=== PATIENT | male | born 1970 | race Caucasian/White ===

== ENCOUNTER → 2020-06-18 | Outpatient (CLI) | payer BC ==
[2020-06-18 07:41] LABS: Basophils # (A) 0.1 k/uL (0-0.2); Basophils % (A) 1 %; Eosinophils # (A) 0.2 k/uL (0-0.7); Eosinophils % (A) 3 %; HCT 50.2 % (39.0-53.0); HGB 16.3 gm/dL (13.0-17.5); Lymphocytes # (A) 1.5 k/uL (1.0-4.8); Lymphocytes % (A) 24 %; MCH 30.2 pg (25.0-35.0); MCHC 32.4 g/dL (31.0-37.0); MCV 93.1 fL (80.0-100.0); Mean Platelet Volume 7.4; Monocytes # (A) 0.5 k/uL (0-1.0); Monocytes % (A) 8 %; Neutrophils # (A) 3.8 k/uL (1.3-7.7); Neutrophils % (A) 61 %; Platelet Count 224 k/uL (150-450); RBC 5.39 m/uL (4.30-5.90); RDW 12.5 % (11.5-15.5); WBC 6.2 k/uL (3.8-10.6)
[2020-06-18 07:52] LABS: Potassium 4.2 mmol/L (3.5-5.1)
== END | disposition home or self-care (01) ==
LOC: LABPAT 07:10
PROVIDERS: ATTEND Orthopaedic Surgery
DX: Z01.818 Encounter for other preprocedural examination (principal); M23.91 Unspecified internal derangement of right knee
CPT/HCPCS: 80051; 85025

== ENCOUNTER 2020-06-25 09:28 | Day surgery (SDC) | payer BC ==
[2020-06-18 16:04] VITALS: BMI 30.1
--- NOTE | 2020-06-24 12:33 | HP ---
HISTORY AND PHYSICAL DATE OF SURGERY: 06/25/2020 Dread Santa is a 50-year-old patient seen with progressive right knee pain. We discussed options for treatment. He elected to proceed with arthroscopy. Consent was obtained. PAST MEDICAL HISTORY: Noncontributory. PAST SURGICAL HISTORY: Herniorrhaphy, right shoulder arthroscopy, hand surgery. DAILY MEDICATIONS: None. ALLERGIES: None reported. SOCIAL HISTORY: He denies current tobacco use. PHYSICAL EVALUATION OF THE RIGHT KNEE: Range of motion is 0-125. There is a mild effusion present. He is tender along the medial joint line. Positive medial Shannan's. Ligaments are stable. Hip rotation without pain. Distal neurovascular exam is intact. RADIOGRAPHS OF THE RIGHT KNEE: Revealed mild osteoarthritic changes. IMPRESSION: Internal derangement, right knee with medial meniscal tear. PLAN: Right knee arthroscopy with partial meniscectomy, partial synovectomy and debridement. MMODL / IJN: [id number] /
[~2020-06-25 09:28] MED LIST: DEXAMETHASONE SOD PHOSPHATE 10 MG/ML 1 ML VIAL IV ONE; LACTATED RINGERS 1,000 ML IV SCH; MIDAZOLAM 2 MG/2 ML VIAL IV PRN; ONDANSETRON 4 MG/2 ML VIAL IVP ONE; SCOPOLAMINE 1.5MG/72HR PATCH TRANSDERM ONE
[2020-06-25] MEDS ORDERED: ONDANSETRON 4 MG/2 ML VIAL ONE (10:04)
[2020-06-25] MEDS ORDERED: fentaNYL (PF) 50 MCG/ML 2 ML AMP ONE (11:06)
[2020-06-25] MEDS ORDERED: MIDAZOLAM 2 MG/2 ML VIAL ONE (11:06)
[2020-06-25] MEDS ORDERED: LIDOCAINE 1% INJ 10MG/ML (20 ML MDV) ONE (11:06)
[2020-06-25] MEDS ORDERED: PROPOFOL 10 MG/ML 20 ML VIAL IV ONE (11:06)
[2020-06-25] MEDS ORDERED: BUPIVACAINE (PF) 0.25% 30 ML VIAL SQ ONE (11:08)
[2020-06-25] MEDS ORDERED: BUPIVACAINE (PF) 0.25% 30 ML VIAL INTRAARTIC ONE (11:39)
[2020-06-25] MEDS: HYDROmorphone 0.5 MG/0.5 ML SYRINGE IVP PRN ×4 (11:55→12:22)
--- NOTE | 2020-06-25 11:57 | P.OP ---
Date of Procedure: 06/25/20 Preoperative Diagnosis: Internal derangement right knee Postoperative Diagnosis: 1. Tear medial meniscus right knee 2. Grade 2/3 chondromalacia medial femoral condyle right knee 3. Reactive synovitis medial, lateral and suprapatellar compartments right knee Procedure(s) Performed: 1. Arthroscopic partial medial meniscectomy right knee 2. Arthroscopic chondroplasty medial femoral condyle right knee 3. Arthroscopic partial synovectomy medial, lateral and suprapatellar compartments right knee Anesthesia: GETA, local Surgeon: Moo Cartwright Estimated Blood Loss (ml): 11 Pathology: none sent Condition: stable Disposition: PACU Indications for Procedure: 50-year-old patient seen with progressive right knee pain. After having treatment options discussed, he elected to proceed with arthroscopy. Operative Findings: see description of procedure Description of Procedure: Patient was taken to the operative suite. Patient underwent a general anesthetic by the department of anesthesia. Patient was given preoperative antibiotics. The right lower extremity was placed in a well-padded arthroscopic leg harding. The right leg was prepped and draped in the normal sterile orthopedic fashion. A lateral parapatellar and suprapatellar incision was made. Trochars were inserted. Arthroscopy was initiated. Suprapatellar pouch revealed diffuse thick reactive synovitis. The patellofemoral joint appeared to articulate congruently. There was grade 1 chondromalacia with no osteochondral flap tears present. The scope was guided into the medial gutter. No loose bodies or plica were identified. The scope was then guided into the medial compartment. A medial parapatellar incision was made. Trocar inserted followed by probe. There was a complex tear involving the posterior horn medial meniscus. There were grade 2/3 chondromalacia changes of the medial femoral condyle with some osteochondral flap tears present. There was thick reactive synovitis anteriorly. I performed a partial medial meniscectomy down to stable tissue. I performed a chondroplasty of the medial femoral condyle. I performed a partial synovectomy decompressing reactive synovitis. The residual meniscus was stable. The residual osteochondral surface of the medial femoral condyle was stable. There was good decompression of the synovitis. Scope and probe were then guided into the intercondylar notch. Cruciates were identified, probed and found to be stable. The scope and probe were then guided into lateral compartment. Lateral meniscus was probed and found be stable. There were some mild grade 1 chondromalacia changes lateral compartment. There was thick reactive synovitis anteriorly. I introduced a motorized shaver and performed a partial synovectomy decompressing reactive synovitis. The shaver was removed. There was good decompression of the synovitis. The scope was in guided back into the suprapatellar compartment. I introduced a motorized shaver into the superapatellar compartment. I debrided some piecemeal fragments of meniscus I encountered. I performed a partial synovectomy decompressing the reactive synovitis. The shaver was removed. There was good decompression of synovitis. I took one more look on the entire knee, no residual debris. Instruments were now removed from the joint. The joint was infiltrated with .25% Marcaine. Steri-Strips were applied to the portal sites. Sterile dressings were applied. The patient was placed into a LUIS ANGEL hose. No tourniquet was utilized. The patient was awakened, transferred to a bed and taken to recovery stable satisfactory condition.
[2020-06-25 12:05] VITALS: RESP 18; TEMP 96.8
[2020-06-25] MEDS ORDERED: ONDANSETRON 4 MG/2 ML VIAL IVP ONE (12:06)
[2020-06-25] MEDS ORDERED: KETOROLAC 30 MG/ML 1 ML VIAL IVP STA (12:13)
[2020-06-25 13:37] VITALS: BP 131/74; PULSE 65
== END 2020-06-25 13:55 | disposition home or self-care (01) ==
LOC: OR 09:28
PROVIDERS: ATTEND Orthopaedic Surgery
DX: S83.241A Other tear of medial meniscus, current injury, right knee, initial encounter (principal); X58.XXXA Exposure to other specified factors, initial encounter; M94.261 Chondromalacia, right knee; M65.861 Other synovitis and tenosynovitis, right lower leg; E66.9 Obesity, unspecified; Z68.31 Body mass index [BMI] 31.0-31.9, adult; Z98.890 Other specified postprocedural states
CPT/HCPCS: 29881; 29876; J2250; J1100; J0690; J2405; J2001; J3010; J1885; J2704; J1170

== ENCOUNTER → 2020-09-01 | Outpatient (CLI) | payer BC ==
--- NOTE | 2020-09-01 14:25 | US ---
EXAMINATION TYPE: US venous doppler duplex LE RT DATE OF EXAM: 09/01/2020 2:13 PM COMPARISON: NONE CLINICAL HISTORY: M79.661 pain R Lower Limb R22.41 Swelling R lower. Eight weeks ago had rt knee arth roscopy for meniscus tear. Patient stated went hiking/hunting in [place] several weeks ago, then mariza ve long periods to [place]. The patient c/o right leg swelling x 1 week, especially at right calf. SIDE PERFORMED: Right TECHNIQUE: The lower extremity deep venous system is examined utilizing real time linear array sonog teresa with graded compression, doppler sonography and color-flow sonography. VESSELS IMAGED: Common Femoral Vein Deep Femoral Vein Greater Saphenous Vein * Femoral Vein Popliteal Vein Small Saphenous Vein * Proximal Calf Veins Posterior tibial veins (* superficial vessels) Right Leg: Negative for DVT. At right popliteal fossa a complex fluid collection is noted, which wes rows then increases in size from upper calf to mid calf = 14.9 x 6.3 x 1.9cm. IMPRESSION: 1. No evidence for DVT within the right lower extremity. 2. Findings suggest a small 1.9 cm complex Palacios cyst but contiguous by a narrow neck with a much lar matilda 14.9 x 6.3 x 1.9 cm fluid collection extending down to the mid calf. Possibilities include ruptur ed Palacios cyst and fluid accumulation lower down, hematoma, and abscess.
== END | disposition home or self-care (01) ==
LOC: RADUSWWP 13:43
PROVIDERS: ATTEND Orthopaedic Surgery
DX: M79.661 Pain in right lower leg (principal); R22.41 Localized swelling, mass and lump, right lower limb

== ENCOUNTER 2021-12-22 21:47 | Emergency (ER) | payer BC ==
[2021-12-22 22:03] VITALS: BP 145/94; PULSE 88; RESP 16; TEMP 97.8
[2021-12-22] MEDS ORDERED: MORPHINE SULFATE 4 MG/ML SYRINGE IM STA (22:51)
--- NOTE | 2021-12-22 23:02 | XR ---
EXAMINATION TYPE: XR tibia fibula RT DATE OF EXAM: 12/22/2021 COMPARISON: NONE HISTORY: Fall. Pain TECHNIQUE: 4 views FINDINGS: There is spiral fracture near the head of the fibula. The knee joint appears anatomic. Ther e is no sign of knee joint effusion. The ankle mortise is anatomic. There is no evidence of tibia fra cture. IMPRESSION: Acute nondisplaced spiral fracture near then neck of the fibula head.
--- NOTE | 2021-12-22 23:03 | XR ---
EXAMINATION TYPE: XR foot complete RT DATE OF EXAM: 12/22/2021 COMPARISON: NONE HISTORY: Pain TECHNIQUE: 3 views FINDINGS: I see no fracture nor dislocation. Metatarsals are intact. There are no erosions. Joint spa lorena are normal. IMPRESSION: Negative right foot exam. No fracture.
--- NOTE | 2021-12-22 23:47 | ED ---
Lower Extremity Injury HPI - General Chief Complaint: Extremity Injury, Lower Stated Complaint: Fall on ice-right leg pain Time Seen by Provider: 12/22/21 22:46 Source: patient, family Mode of arrival: wheelchair Limitations: no limitations - History of Present Illness Initial Comments: This is a pleasant 51-year-old male who presents for his apartment stating that he fell earlier today when he slipped on ice. He states she was wearing boots at the time and ended up twisting his right leg underneath his body. Patient complaining of pain to the tibia/fibular area. No distal paresthesias. No pain in the foot. No pain in the knee or proximally. No other injuries. There is no break in skin integrity. Patient states she cannot walk on the affected extremity. - Related Data Previous Rx's Medication Instructions Recorded HYDROcodone/APAP 5-325MG [Callaway 1 tab PO Q6HR PRN 3 Days #12 tab 12/22/21 5-325] Allergies Allergy/AdvReac Type Severity Reaction Status Date / Time No Known Allergies Allergy Verified 12/22/21 23:16 Review of Systems ROS Statement: Those systems with pertinent positive or pertinent negative responses have been documented in the HPI. ROS Other: All systems not noted in ROS Statement are negative. Past Medical History Additional Past Medical History / Comment(s): hx heart murmer History of Any Multi-Drug Resistant Organisms: None Reported Past Surgical History: Hernia Repair, Orthopedic Surgery Past Anesthesia/Blood Transfusion Reactions: No Reported Reaction Past Psychological History: No Psychological Hx Reported Smoking Status: Never smoker Past Alcohol Use History: Occasional Past Drug Use History: None Reported - Past Family History Mother Family Medical History: Cancer General Exam Limitations: no limitations General appearance: alert, in no apparent distress Head exam: Present: atraumatic, normocephalic, normal inspection Eye exam: Present: normal appearance, PERRL, EOMI. Absent: scleral icterus, conjunctival injection, periorbital swelling ENT exam: Present: normal exam, mucous membranes moist Neck exam: Present: normal inspection. Absent: tenderness, meningismus, lymphadenopathy Respiratory exam: Present: normal lung sounds bilaterally. Absent: respiratory distress, wheezes, rales, rhonchi, stridor Cardiovascular Exam: Present: regular rate, normal rhythm, normal heart sounds. Absent: systolic murmur, diastolic murmur, rubs, gallop, clicks GI/Abdominal exam: Present: soft, normal bowel sounds. Absent: tenderness Extremities exam: Present: normal inspection, tenderness, normal capillary refill. Absent: full ROM, pedal edema, joint swelling Right Upper Leg exam: Present: normal inspection. Absent: tenderness, swelling Knee exam: Present: normal inspection, full ROM. Absent: tenderness Lower Leg exam: Present: tenderness (Patient is tender over the proximal fibula. No break in skin integrity. Minimal crepitus ascertained.). Absent: abrasion, laceration, ecchymosis, deformity, crepitus, dislocation, erythema, palpable cord, Homans' sign (Castillo's test is normal) Ankle exam: Present: normal inspection, full ROM, tenderness (Patient does have tenderness over the both the deltoid ligament and the anterior talofibular ligament.). Absent: swelling, abrasion, laceration, ecchymosis, deformity, crepitus, erythema Foot/Toe exam: Present: normal inspection, full ROM. Absent: tenderness, swelling, ecchymosis, deformity, crepitus, dislocation, foreign body, calcaneal tenderness, tenderness at base of 5th metatarsal Neurovascular tendon exam: Present: no vascular compromise. Absent: pulse deficit, abnormal cap refill, motor deficit, sensory deficit, tendon deficit, extremity cold to touch, pallor, abnormal 2-point discrimination Back exam: Present: normal inspection Neurological exam: Present: alert, oriented X3, CN II-XII intact Psychiatric exam: Present: normal affect, normal mood Skin exam: Present: warm, dry, intact, normal color. Absent: rash Course Vital Signs 12/22/21 21:58 Temperature 97.8 F Pulse Rate 88 Respiratory 16 Rate Blood Pressure 145/94 O2 Sat by Pulse 95 Oximetry Procedures - Orthopedic Splinting/Casting Injury #1 Side: right Lower Extremity Injury Location: long leg (Long-leg posterior OCL applied.) Lower Extremity Immobilizer: posterior splint Other Orthopedic Equipment: crutches Additional Comments: Distal neurovascular status intact both pre-and post-application. Splint applied by me. Disposition Clinical Impression: Sprain of deltoid ligament of right ankle, initial encounter, Closed fracture of proximal end of right fibula, Sprain of anterior talofibular ligament of right ankle Disposition: HOME SELF-CARE Condition: Stable Instructions (If sedation given, give patient instructions): Leg Fracture (ED), Splint Care (ED), Crutch Instructions (ED) Additional Instructions: Follow-up with the orthopedic physician as discussed. Call tomorrow morning for follow-up appointment. Elevate your leg whenever possible. Use crutches at all times. No weightbearing until follow-up with the orthopedic doctor. Return to the ER immediately if any symptoms worsen or any other problems arise. No driving or operating machinery on taking the pain medication. If the pain is not bad, you can use regular Tylenol in place. Prescriptions: HYDROcodone/APAP 5-325MG [Callaway 5-325] 1 tab PO Q6HR PRN 3 Days #12 tab PRN Reason: Pain Is patient prescribed a controlled substance at d/c from ED?: Yes Referrals: Moo Cartwright DO [Doctor of Osteopathic Medicine] - 1-2 days Time of Disposition: 23:49
== END 2021-12-23 00:15 | disposition home or self-care (01) ==
LOC: EC 21:47
DX: S82.831A Other fracture of upper and lower end of right fibula, initial encounter for closed fracture (principal); S93.421A Sprain of deltoid ligament of right ankle, initial encounter; W01.0XXA Fall on same level from slipping, tripping and stumbling without subsequent striking against object, initial encounter
CPT/HCPCS: 99283; 96372; 29505; 73590; 73630; J2270

== ENCOUNTER 2021-12-24 08:25 | Day surgery (SDC) | payer BC ==
--- NOTE | 2021-12-23 20:00 | HP ---
HISTORY AND PHYSICAL DATE OF SURGERY: 12/24/2021 Dread Mena is a 51-year-old gentleman seen with a right ankle syndesmotic injury. I recommended open reduction internal fixation, right ankle syndesmosis. I reviewed the procedure, risks, complications, benefits and recovery. He was agreeable. Consent was obtained. PAST MEDICAL HISTORY: Noncontributory. PAST SURGICAL HISTORY: Shoulder arthroscopy, knee arthroscopy, hand surgery, herniorrhaphy. DAILY MEDICATIONS: None. ALLERGIES: NONE REPORTED. SOCIAL HISTORY: He denies current tobacco use. PHYSICAL EVALUATION OF THE RIGHT ANKLE: There is tenderness along the medial deltoid ligament as well as the syndesmotic area. There is some diffuse swelling present. Limited range of motion secondary to pain. Good perfusion sensation distally. Homans and Michael are negative. There is some tenderness along the right proximal fibula consistent with fracture there. X-rays of the ankle revealed widening of the medial mortise. IMPRESSION: 1. Right ankle syndesmotic injury. 2. History of right ankle proximal fibular fracture. PLAN: Open reduction internal fixation, right ankle syndesmotic injury. MMODL / IJN: [id number] /
[2021-12-24 16:21] VITALS: RESP 16; TEMP 97.9
[2021-12-24] MEDS ORDERED: LACTATED RINGERS 1,000 ML IV ONE (16:24)
[2021-12-24] MEDS ORDERED: LIDOCAINE 1% (10MG/ML) FOR IV START INTRADERMA ONE (16:25)
[2021-12-24] MEDS ORDERED: ONDANSETRON 4 MG/2 ML VIAL ONE (16:31)
[2021-12-24] MEDS ORDERED: DEXAMETHASONE SOD PHOSPHATE 4 MG/ML 1 ML VIAL IV ONE (16:40)
[2021-12-24] MEDS ORDERED: fentaNYL (PF) 50 MCG/ML 2 ML AMP IV ONE (16:41)
[2021-12-24] MEDS ORDERED: MIDAZOLAM 2 MG/2 ML VIAL IV ONE (16:41)
[2021-12-24] MEDS ORDERED: MIDAZOLAM 2 MG/2 ML VIAL ONE (17:41)
[2021-12-24] MEDS ORDERED: LIDOCAINE 1% INJ 10MG/ML (20 ML MDV) ONE (17:41)
[2021-12-24] MEDS ORDERED: fentaNYL (PF) 50 MCG/ML 2 ML AMP ONE (17:41)
[2021-12-24] MEDS ORDERED: ROPIVACAINE 5 MG/ML 30 ML VIAL ONE (17:41)
[2021-12-24] MEDS ORDERED: PROPOFOL 10 MG/ML 20 ML VIAL IV ONE (17:41)
[2021-12-24] MEDS ORDERED: SODIUM CHLORIDE 0.9% (PF) 10 ML VIAL ONE (17:41)
[2021-12-24] MEDS ORDERED: ceFAZolin 1,000 MG in SODIUM CHLORIDE 0.9% 1,000 ML IRRIGATION ONE (18:27)
--- NOTE | 2021-12-24 18:27 | P.ANPRN ---
Procedure Note - Anesthesia - Nerve Block Performed Right Adductor Canal Time Out Performed: Yes (16:41) Date of Procedure: 12/24/21 Procedure Start Time: 16:41 Procedure Stop Time: 16:49 Location of Patient: PreOp Indication: Acute Post-Operative Pain, Requested by Surgeon (Dr carpio) Sedation Type: Sedate with meaningful contact maintained Preparation: Sterile Prep Position: Supine Catheter: None Needle Types: Pajunk Needle Gauge: 21 Ultrasound used to visualize needle placement: Yes Ultrasound used to observe medication spread: Yes Injectate: 0.5% Ropivacaine (see comment for volume) (15cc + 5cc PF Normal saline) Blood Aspirated: No Pain Paresthesia on Injection Noted: No Resistance on Injection: Normal Image Stored and Saved: Yes Events: Uneventful and Well Tolerated
--- NOTE | 2021-12-24 18:29 | P.ANPRN ---
Procedure Note - Anesthesia - Nerve Block Performed Right Popliteal Time Out Performed: Yes Date of Procedure: 12/24/21 Procedure Start Time: 16:50 Procedure Stop Time: 16:59 Location of Patient: PreOp Indication: Acute Post-Operative Pain, Requested by Surgeon (Dr Cartwright) Sedation Type: Sedate with meaningful contact maintained Preparation: Sterile Prep Position: Left Lateral Catheter: None Needle Types: Pajunk Needle Gauge: 21 Ultrasound used to visualize needle placement: Yes Ultrasound used to observe medication spread: Yes Injectate: 0.5% Ropivacaine (see comment for volume) (15cc + 5cc PF Normal saline) Blood Aspirated: No Pain Paresthesia on Injection Noted: No Resistance on Injection: Normal Image Stored and Saved: Yes Events: Uneventful and Well Tolerated
--- NOTE | 2021-12-24 19:01 | P.OP ---
Date of Procedure: 12/24/21 Preoperative Diagnosis: Right ankle syndesmotic injury Postoperative Diagnosis: Same Procedure(s) Performed: Open reduction and internal fixation right ankle syndesmotic injury Implants: 1 Arthrex 2 hole plate with 2 Arthrex tightropes Anesthesia: GETA, regional (Adductor canal block and popliteal block) Surgeon: Moo Cartwright Abrasive Band Winder #1: Slim Castellano Estimated Blood Loss (ml): 10 Pathology: none sent Condition: stable Disposition: PACU Indications for Procedure: 51-year-old gentleman seen with a right ankle syndesmotic injury. I recommend open reduction and internal fixation of his right ankle syndesmotic injury. He was agreeable. Consent was obtained Operative Findings: See description of procedure Description of Procedure: The patient was taken to the operative suite after having regional blocks performed by the department of anesthesia. He received preoperative IV antibiotics. He underwent a general anesthetic by the department of anesthesia. A well-padded to get was placed along the proximal thigh. The right lower extremity was prepped and draped in the normal sterile orthopedic fashion. The right lower extremity was elevated it was insufflated to 300. I brought the C- arm in in order to obtained the appropriate incision area. I again noted medial widening of the mortise. I now made an incision along the lateral malleolus. I dissected down to the lateral malleolus. I then chose a 2 hole plate for securing of the tight rope buttons. I secured that with a along with her. I then introduced the guidewires across the fibula into the tibia. I overdrilled that with cannulated drill. I now introduced to Arthrex tight ropes crossing this and most this. I then held the ankle and she flexion and tight in both the tight ropes down to reapproximate the syndesmotic injury. The C-arm was brought in confirming adequate reduction of the syndesmosis and anabaptist of the ankle mortise. The suture limbs were clipped. The wound was irrigated. The incision was approximated subcutaneously with 2-0 Vicryl. The skin is proximal skin neha. Sterile dressings were applied. The tourniquet was released with immediate capillary refill noted. The ankle was placed into a well padded modified bulky Whitley splint. The patient was awakened and transferred to recovery having tolerated procedure well. Cory SUNSHINE assisted with this procedure.
--- NOTE | 2021-12-24 19:28 | FL ---
EXAMINATION TYPE: FL guidance operating room DATE OF EXAM: 12/24/2021 CLINICAL HISTORY: Syndesmotic injury TECHNIQUE: Fluoroscopy. COMPARISON: None. FINDINGS: Fluoroscopic guidance was provided during procedure performed by Dr. Cartwright. A total o f 33.9 seconds of fluoroscopic time was utilized during the procedure and 3 spot images was acquired. IMPRESSION: As Above.
[2021-12-24 19:49] VITALS: BP 133/77; PULSE 73
== END 2021-12-24 20:18 | disposition home or self-care (01) ==
LOC: OR 08:25
PROVIDERS: ATTEND Orthopaedic Surgery
DX: S93.431A Sprain of tibiofibular ligament of right ankle, initial encounter (principal); X58.XXXA Exposure to other specified factors, initial encounter; Z87.81 Personal history of (healed) traumatic fracture; Z98.890 Other specified postprocedural states; R01.1 Cardiac murmur, unspecified
CPT/HCPCS: 64447; 64445; 76942; 73610; 27829; C1713; J2250; J1100; J0690 ×2; J2405; J3010

== ENCOUNTER 2023-02-22 08:59 | Day surgery (SDC) | payer BC ==
[~2023-02-22 08:59] MED LIST changes: -DEXAMETHASONE SOD PHOSPHATE 10 MG/ML 1 ML VIAL IV ONE; +LIDOCAINE 1% (10MG/ML) FOR IV START INTRADERMA PRN; -MIDAZOLAM 2 MG/2 ML VIAL IV PRN; -ONDANSETRON 4 MG/2 ML VIAL IVP ONE; -SCOPOLAMINE 1.5MG/72HR PATCH TRANSDERM ONE
[2023-02-22 09:20] VITALS: TEMP 97.3
[2023-02-22] MEDS ORDERED: LIDOCAINE 2% INJ 20 MG/ML (2 ML VIAL) ONE (10:01)
[2023-02-22] MEDS ORDERED: PROPOFOL 10 MG/ML 20 ML VIAL IV ONE (10:01)
[2023-02-22] MEDS ORDERED: fentaNYL (PF) 50 MCG/ML 2 ML AMP ONE (10:01)
[2023-02-22] MEDS ORDERED: MIDAZOLAM 2 MG/2 ML VIAL ONE (10:01)
--- NOTE | 2023-02-22 10:09 | P.PCN ---
Date of Procedure: 02/22/23 Procedure(s) Performed: BRIEF HISTORY: Patient is a 53-year-old, pleasant, white male scheduled for an upper endoscopy as a part of evaluation of long-standing history of GERD.. Currently on no medications and takes [id number] antacids as needed. PROCEDURE PERFORMED: Esophagogastroduodenoscopy with biopsy. PREOPERATIVE DIAGNOSIS: Long-standing history of GERD. IV sedation per anesthesia. PROCEDURE: After informed consent was obtained, the patient was brought into the endoscopy unit. IV sedation was administered by Anesthesia under continuous monitoring. Initially the Olympus GIF-140 video endoscope was inserted into the mouth. Esophagus intubated without any difficulty. It was gradually advanced into the stomach and duodenum and carefully examined. The bulb and the second part of the duodenum appeared normal. The scope at this time was withdrawn to the stomach, adequately insufflated with air, and upon careful examination, mucosa of the antrum, had mild antral gastritis and biopsies were done from this area. Mucosa of the body, cardia and the fundus appeared normal. The scope was then withdrawn into the esophagus. The GE junction was located at 40 cm from the incisors. Small hiatal hernia noted. There were linear erosions in the distal esophagus consistent with LA grade B reflux esophagitis. Biopsies were done from the distal esophagus The rest of esophagus appeared normal and the patient tolerated the procedure well. IMPRESSION: 1. Linear erosions in the distal esophagus consistent with LA grade B reflux esophagitis. 2. Small hiatal hernia 3. Mild antral gastritis. RECOMMENDATIONS: The findings of this examination were discussed with the patient as well as his family. He was advised to follow with the biopsy results. If the meantime he will be started on omeprazole 20 mg daily and was educated about antireflux measures. With biopsy.
[2023-02-22 10:22] VITALS: RESP 16
[2023-02-22 10:34] VITALS: BP 130/86; PULSE 64
== END 2023-02-22 10:56 | disposition home or self-care (01) ==
LOC: ORWHC2ENDO 08:59
PROVIDERS: ATTEND Internal Medicine Gastroenterology
DX: K21.00 Gastro-esophageal reflux disease with esophagitis, without bleeding (principal); K44.9 Diaphragmatic hernia without obstruction or gangrene; K29.50 Unspecified chronic gastritis without bleeding; Z87.891 Personal history of nicotine dependence
CPT/HCPCS: 88305; 43239; J2250; J3010; J2704; J2001

== ENCOUNTER → 2024-05-23 | Outpatient (CLI) | payer BC ==
--- NOTE | 2024-05-24 12:55 | CT ---
EXAMINATION TYPE: CT heart w calcium score DATE OF EXAM: 05/23/2024 COMPARISON: None HISTORY: 54-year-old male Screening for cardiovascular disorder. Z13.9 CT DLP: 103.9 mGycm Automated exposure control for dose reduction was used. CT CALCIUM SCORING Coronary calcium is a marker for plaque (fatty deposits) in a blood vessel or atherosclerosis (harden ing of the arteries). The presence and amount of calcium detected in a coronary artery by the CT sca n, indicates the presence and amount of atherosclerotic plaque. These calcium deposits appear years before the development of heart disease symptoms such as chest pain and shortness of breath. A calcium score is computed for each of the coronary arteries based upon the volume and density of th e calcium deposits. This can be referred to as your calcified plaque burden. It does not correspond directly to the percentage of narrowing in the artery but does correlate with the severity of the un derlying coronary atherosclerosis. PROCEDURE TECHNIQUE - Prospective Gating was used. Slice thickness: 3mm. Density threshold (HU): 130, Pixel threshold: 3, Algorithm: discrete. RESULTS Region: LM Calcium Score ([place]at[place]): 0 Volume (mm3): 0 Mass (g): 0 Region: RCA Calcium Score ([place]): 0 Volume (mm3): 0 Mass (g): 0 Region: LAD Calcium Score ([place]at[place]): 0 Volume (mm3): 0 Mass (g): 0 Region: CX Calcium Score ([place]): 0 Volume (mm3): 0 Mass (g): 0 Region: PDA Calcium Score ([place]): 0 Volume (mm3): 0 Mass (g): 0 Total: Calcium Score ([place]at[place]): 0 Volume (mm3): 0 Mass (g): 0 TOTAL CALCIUM SCORE: 0 INCIDENTAL: Borderline enlarged caliber to the main right and left pulmonary arteries up to 2.6 cm ma y reflect underlying pulmonary hypertension. IMPRESSION: Calcium Score: 0 Implication: No identifiable plaque. Risk of Coronary Artery Disease: Very low, generally less than 5%.
== END | disposition home or self-care (01) ==
LOC: RADCTMAIN 14:43
PROVIDERS: ATTEND Internal Medicine Interventional Cardiology
DX: Z13.9 Encounter for screening, unspecified (principal); I25.10 Atherosclerotic heart disease of native coronary artery without angina pectoris
CPT/HCPCS: 75571

== ENCOUNTER 2024-08-31 19:50 | Observation (INO) | payer BC ==
[2024-08-31 19:58] VITALS: TEMP 98
--- NOTE | 2024-08-31 19:59 | ED ---
Chest Pain HPI - General Source: patient Mode of arrival: ambulatory Limitations: no limitations <Selin Ruelas - Last Filed: 08/31/24 19:58> - History of Present Illness MD Complaint: chest pain Onset/Timin -: hour(s) Onset: during rest Pain Location: epigastric Pain Radiation: back Severity: moderate Quality: aching, other (Burning) Consistency: constant Improves With: nothing Worsens With: nothing Anginal Symptoms: dyspnea Treatments Prior to Arrival: other <Dionicio Farrell - Last Filed: 09/17/24 12:04> - General Chief Complaint: Chest Pain Stated Complaint: Chest Pain,Sob Time Seen by Provider: 08/31/24 19:58 - History of Present Illness Initial Comments: 54-year-old male presenting with chief complaint of chest pain. Feels like a burning sensation in the lower and central portion of the chest. Admits to shortness of breath. Started earlier this morning. (Selin Ruelas) This patient is a 54-year-old man who presents with pain in the epigastric area radiating to the back. Symptoms present for probably 20 hours now. Also along costal margin bilaterally. Patient does have history of peptic ulcer/GERD but states that this has a different sensation to it. The patient describes significant family history of cardiac disease and states that he did have recent stress test and echocardiogram but states that the tests were less than 1 week ago and he has not received results yet. Patient has tried antacids without any relief of symptoms. There is some associated dyspnea. (Dionicio Farrell) - Related Data Home Medications Medication Instructions Recorded Confirmed No Known Home Medications 09/01/24 09/01/24 Allergies Allergy/AdvReac Type Severity Reaction Status Date / Time No Known Allergies Allergy Verified 09/01/24 09:06 Review of Systems ROS Other: All systems not noted in ROS Statement are negative. <Selin Ruelas - Last Filed: 08/31/24 19:58> ROS Other: All systems not noted in ROS Statement are negative. Constitutional: Denies: fever, chills Respiratory: Reports: dyspnea. Denies: cough Cardiovascular: Reports: as per HPI, chest pain. Denies: palpitations, orthopnea, edema, syncope Gastrointestinal: Denies: abdominal pain, nausea, vomiting, melena, hematochezia Genitourinary: Denies: dysuria, hematuria Musculoskeletal: Denies: back pain Skin: Denies: rash Neurological: Denies: headache, weakness <BudDionicio - Last Filed: 09/17/24 12:04> ROS Statement: Those systems with pertinent positive or pertinent negative responses have been documented in the HPI. EKG Findings - EKG Comments: EKG Findings:: Possible old anteroseptal infarct. - EKG Results: EKG: interpreted by ERMD, sinus rhythm (93 bpm) - Blocks, Diamond, Hypertrophy, ST Abn: QRS axis and voltage: indeterminate axis, low voltage (<0.5 MV total QRS and <1.0 MV in each precordial lead) <BudDionicio - Last Filed: 09/17/24 12:04> Past Medical History Past Medical History: Cancer, GERD/Reflux Additional Past Medical History / Comment(s): hx heart murmur, basal skin cancer, heartburn History of Any Multi-Drug Resistant Organisms: None Reported Past Surgical History: Hernia Repair, Orthopedic Surgery Additional Past Surgical History / Comment(s): repair torn rotator cuff right, ORIF right ankle, arthroscopy right knee Past Anesthesia/Blood Transfusion Reactions: No Reported Reaction Past Psychological History: No Psychological Hx Reported Smoking Status: Never smoker Past Alcohol Use History: Occasional Past Drug Use History: None Reported - Past Family History Mother Family Medical History: Cancer <Selin Ruelas - Last Filed: 08/31/24 19:58> General Exam Limitations: no limitations <Selin Ruelas - Last Filed: 08/31/24 19:58> Limitations: no limitations General appearance: alert, in no apparent distress Head exam: Present: atraumatic, normocephalic Eye exam: Present: normal appearance. Absent: scleral icterus, conjunctival injection Neck exam: Present: normal inspection Respiratory exam: Present: normal lung sounds bilaterally. Absent: respiratory distress, wheezes, rales, rhonchi, stridor, chest wall tenderness, accessory muscle use Cardiovascular Exam: Present: regular rate, normal rhythm, normal heart sounds. Absent: systolic murmur, diastolic murmur, rubs, gallop GI/Abdominal exam: Present: soft. Absent: distended, tenderness, guarding, rebound, rigid, mass, pulsatile mass, hernia Extremities exam: Present: normal inspection, normal capillary refill. Absent: pedal edema, calf tenderness Back exam: Present: normal inspection. Absent: CVA tenderness (R), CVA tenderness (L) Neurological exam: Present: alert Skin exam: Present: warm, dry, intact, normal color. Absent: rash <Dionicio Farrell - Last Filed: 09/17/24 12:04> - General Exam Comments Initial Comments: Visual Physical Exam Vital signs reviewed General: Well-appearing, nontoxic, no acute distress. Head: Normocephalic, atraumatic Eyes: PERRLA, EOMI ENT: Airway patent Chest: Nonlabored breathing Skin: No visual rash, normal skin tone Neuro: Alert and oriented 3 Musculoskeletal: No gross abnormalities (Selin Ruelas) Course Vital Signs 08/31/24 08/31/24 09/01/24 19:54 23:33 01:20 Temperature 98.0 F Pulse Rate 97 87 71 Respiratory 20 17 Rate Blood Pressure 169/93 180/88 O2 Sat by Pulse 99 Oximetry 09/01/24 09/01/24 09/01/24 01:25 02:00 06:00 Temperature Pulse Rate 76 81 69 Respiratory 17 17 Rate Blood Pressure 131/72 119/69 O2 Sat by Pulse 95 96 Oximetry 09/01/24 09/01/24 09/01/24 11:00 14:00 15:58 Temperature Pulse Rate 68 75 74 Respiratory 17 17 17 Rate Blood Pressure 127/76 143/74 126/74 O2 Sat by Pulse 98 97 98 Oximetry Chest Pain MDM <Selin Ruelas - Last Filed: 08/31/24 19:58> <Dionicio Farrell - Last Filed: 09/17/24 12:04> - MDM I performed the quick note portion of this visit, electronically signed Selin Ruelas PA-C (Selin Ruelas) The patient had chest x-ray that I interpreted as negative for acute infiltrate, pneumothorax, congestive heart failure Was pt. sent in by a medical professional or institution (JONG Torres, CONTRACTING SPECIALIST, urgent care, hospital, or fpc...) When possible be specific @ -[No] Did you speak to anyone other than the patient for history (EMS, parent, family, police, friend...)? What history was obtained from this source @ -[No] Did you review nursing and triage notes (agree or disagree)? Why? @ -[I reviewed and agree with nursing and triage notes] Were old charts reviewed (outside hosp., previous admission, EMS record, old EKG, old radiological studies, urgent care reports/EKG's, fpc records)? Report findings @ -[No old charts were reviewed] Differential Diagnosis (chest pain, altered mental status, abdominal pain women, abdominal pain men, vaginal bleeding, weakness, fever, dyspnea, syncope, headache, dizziness, GI bleed, back pain, seizure, CVA, palpatations, mental health, musculoskeletal)? @ -[Differential Chest Pain: Stable Angina, Unstable Angina, STEMI, NSTEMI Aortic Dissection, Pneumothorax, Musculoskeletal, Esophageal Spasm GERD, Cholecystitis, Pancreatitis, Zoster, this is not meant to be an all-inclusive list. EKG interpreted by me (3pts min.). @ -[I interpreted as above] X-rays interpreted by me (1pt min.). @ -[No I interpreted as above CT interpreted by me (1pt min.). @ -[None done] U/S interpreted by me (1pt. min.). @ -[None done] What testing was considered but not performed or refused? (CT, X-rays, U/S, labs)? Why? @ -[None] What meds were considered but not given or refused? Why? @ -[None] Did you discuss the management of the patient with other professionals (p mohsen i.e. , PA, CONTRACTING SPECIALIST, lab, RT, psych nurse, social human services assistants, food safety coordinator, teacher, sustainability officer, registered nurse hh case manager)? Give summary @ -[No] Was smoking cessation discussed for >3mins.? @ -[No] Was critical care preformed (if so, how long)? @ -[No] Were there social determinants of health that impacted care today? How? (Homelessness, low income, unemployed, alcoholism, drug addiction, transportatio n, low edu. Level, literacy, decrease access to med. care, long term, rehab)? @ -[No] Was there de-escalation of care discussed even if they declined (Discuss DNR or withdrawal of care, Hospice)? DNR status @ -[No] What co-morbidities impacted this encounter? (DM, HTN, Smoking, COPD, CAD, Cancer, CVA, ARF, Chemo, Hep., AIDS, mental health diagnosis, sleep apnea, morbid obesity)? @ -[None] Was patient admitted / discharged? Hospital course, mention meds given and route, prescriptions, significant lab abnormalities, going to OR and other pertinent info. @ -See above Undiagnosed new problem with uncertain prognosis? @ -[No] Drug Therapy requiring intensive monitoring for toxicity (Heparin, Nitro, Insulin, Cardizem)? @ -[No] Were any procedures done? @ -[No] Diagnosis/symptom? @ -[Acute chest pain Acute, or Chronic, or Acute on Chronic? @ -[Acute Uncomplicated (without systemic symptoms) or Complicated (systemic symptoms)? @ -[Complicated by dyspnea Side effects of treatment? @ -[No] Exacerbation, Progression, or Severe Exacerbation? @ -[No] Poses a threat to life or bodily function? How? (Chest pain, [place], [place], pneumonia, PE, COPD, DKA, ARF, appy, cholecystitis, CVA, Diverticulitis, Homicidal, Suicidal, threat to staff... and all critical care pts) @ -Requires further cardiology evaluation to determine (Dionicio Farrell) Disposition <Selin Ruelas - Last Filed: 08/31/24 19:58> Is patient prescribed a controlled substance at d/c from ED?: No <Dionicio Farrell - Last Filed: 09/17/24 12:04> Clinical Impression: Atypical chest pain Disposition: HOME SELF-CARE
[2024-08-31 20:45] LABS: Basophils # (A) 0.1 k/uL (0-0.2); Basophils % (A) 1 %; Eosinophils # (A) 0.1 k/uL (0-0.7); Eosinophils % (A) 1 %; HCT 47.3 % (39.0-53.0); HGB 16.7 gm/dL (13.0-17.5); Lymphocytes # (A) 1.9 k/uL (1.0-4.8); Lymphocytes % (A) 17 %; MCHC 35.3 g/dL (31.0-37.0); MCV 90.6 fL (80.0-100.0); Mean Platelet Volume 7.5; Monocytes # (A) 0.8 k/uL (0-1.0); Monocytes % (A) 8 %; Neutrophils # (A) 7.9 k/uL (1.3-7.7); Neutrophils % (A) 72 %; Platelet Count 220 k/uL (150-450); RBC 5.23 m/uL (4.30-5.90); RDW 12.6 % (11.5-15.5)
[2024-08-31 20:57] LABS: ALT 31 U/L (4-49); AST 39 U/L (17-59); African American GFR (CKD) 57 (>60 ml/min/1.73 sqM); Albumin 4.6 g/dL (3.5-5.0); Alkaline Phosphatase 76 U/L (38-126); Anion Gap 5 mmol/L; Blood Urea Nitrogen 17 mg/dL (9-20); Calcium 9.8 mg/dL (8.4-10.2); Carbon Dioxide 32 mmol/L (22-30); Chloride 103 mmol/L (98-107); Glucose 110 mg/dL (74-99); Magnesium 1.9 mg/dL (1.6-2.3); Non-African American GFR(CKD) 49 (>60 ml/min/1.73 sqM); Potassium 4.5 mmol/L (3.5-5.1); Sodium 140 mmol/L (137-145); Total Bilirubin 0.6 mg/dL (0.2-1.3); Total Protein 7.8 g/dL (6.3-8.2)
[2024-08-31 20:59] LABS: Partial Thromboplastin Time 25.2 sec (22.0-30.0); Prothrombin Time 10.7 sec (10.0-12.5)
--- NOTE | 2024-08-31 21:43 | XR ---
EXAMINATION TYPE: XR chest 2V DATE OF EXAM: 08/31/2024 COMPARISON: None INDICATION: Chest pain TECHNIQUE: Frontal and lateral views of the chest are obtained. FINDINGS: The heart size is normal. The pulmonary vasculature is normal. Some minimal infiltrate may be within the right upper lung field.. IMPRESSION: 1. Minimal right upper lung field infiltrate. Correlate for atelectasis or developing pneumonia [facility], Workstation: [facility], 08/31/2024 9:40 PM
[2024-08-31] MEDS: MAG HYDROX/AL HYDROX/SIMETH 30 ML, HYOSCYAMINE ELIXIR 10 ML, LIDOCAINE VISCOUS 2% 10 ML PO STA (23:13)
[2024-08-31 23:31] LABS: Amylase 67 U/L (30-110); Lipase 75 U/L (23-300)
[2024-08-31 23:34] VITALS: RESP 17
[2024-09-01] MEDS: ALBUTEROL NEBULIZED 2.5 MG/3 ML INHALATION STA (01:18)
[2024-09-01] MEDS ORDERED: NITROGLYCERIN SL TABS 0.4 MG TAB SUBLINGUAL PRN (02:30)
[2024-09-01] MEDS: CHOLECALCIFEROL 25 MCG (1000 IU) TABLET PO SCH (09:27)
--- NOTE | 2024-09-01 14:14 | P.CRDCN ---
History of Present Illness Consult date: 09/01/24 History of present illness: HISTORY OF PRESENTING ILLNESS 54-year-old male with no significant past medical history known to Dr. Webster. He is getting worked up for atypical chest pain symptoms and prior history of family history of coronary artery disease with a outpatient echo stress test and a coronary artery calcium score. Coronary artery calcium score came back 0 he is still awaiting for his outpatient echo and stress test results. His appointment is coming up in next 10 days. This time he presented to the hospital because he was having some substernal ch est heaviness and epigastric heaviness along with difficulty in taking deep breath. The symptoms resolved after taking GI cocktail. On admission his troponins were negative x 3, D-dimer was negative at 0.5. His Wells score for DVT and PE was low. Creatinine was 1.5. Patient reports he has not had any prior low kidney function. Other labs were nonrevealing. Admission ECG showed sinus rhythm with no significant ST-T wave changes that are concerning for acute ischemia. Telemetry does not show any acute arrhythmias. He does not appear to be in congestive heart failure REVIEW OF SYSTEMS 14 point review of system is negative except what is mentioned above in HPI. PHYSICAL EXAMINATION Vital signs reviewed. Head: Normocephalic. Eyes: Sclerae nonicteric. Neck: Brisk carotid upstroke, no jugular venous distention. Lungs: Clear to auscultation. Heart: Regular rate and rhythm, S1-S2, no S3, no murmur or rub. Abdomen: Soft nontender, positive bowel sounds. Extremities: No edema, intact distal pulses. Neuro: Alert, oritented, no focal deficits. Detailed neuro exam was not performed. ASSESSMENT Atypical chest pain, ruled out of acute coronary syndrome with negative troponin, D-dimer and nonischemic ECG. He is symptoms have resolved after GI cocktail Obesity MARC PLAN At this time patient is okay to be discharged from cardiac standpoint. Less likelihood of PE and DVT with low Wells score and negative D-dimer. No reported history of malignancies, family history of PE or DVT, immobility or any lower extremity swelling edema. Patient is very eager to go home. He is not wanting unnecessary radiation from the nuclear scan. Repeat outpatient labs, NT-proBNP, lipids, HbA1c, CMP to follow-up on the kidney function. Follow-up with Dr. Webster. Call cardiology office or ER if he has any recurrent symptoms. If symptoms recur and are concerning, consider outpatient CTA coronary Dick Amador MD, FACC, RPVI Thank you for allowing [facility] to participate in this patient's care. Feel free to reach out in case of any followup questions. Past Medical History Past Medical History: Cancer, GERD/Reflux Additional Past Medical History / Comment(s): hx heart murmur, basal skin canc er, heartburn History of Any Multi-Drug Resistant Organisms: None Reported Past Surgical History: Hernia Repair, Orthopedic Surgery Additional Past Surgical History / Comment(s): repair torn rotator cuff right, ORIF right ankle, arthroscopy right knee Past Anesthesia/Blood Transfusion Reactions: No Reported Reaction Past Psychological History: No Psychological Hx Reported Smoking Status: Never smoker Past Alcohol Use History: Occasional Past Drug Use History: None Reported - Past Family History Mother Family Medical History: Cancer Medications and Allergies Home Medications Medication Instructions Recorded Confirmed Type No Known Home Medications 09/01/24 09/01/24 History Allergies Allergy/AdvReac Type Severity Reaction Status Date / Time No Known Allergies Allergy Verified 09/01/24 09:06 Physical Exam Vitals: Vital Signs Temp Pulse Resp BP Pulse Ox 09/01/24 14:00 75 17 143/74 97 09/01/24 11:00 68 17 127/76 98 09/01/24 06:00 69 17 119/69 96 09/01/24 02:00 81 17 131/72 95 09/01/24 01:25 76 09/01/24 01:20 71 08/31/24 23:33 87 17 180/88 08/31/24 19:54 98.0 F 97 20 169/93 99 Intake and Output 08/31/24 09/01/24 09/01/24 22:59 06:59 14:59 Other: Weight 97.522 kg Results 08/31/24 20:20 08/31/24 20:20 Cardiac Enzymes 08/31/24 08/31/24 09/01/24 Range/Units 20:20 20:20 06:18 AST 39 (17-59) U/L Troponin I <0.012 <0.012 (0.000-0.034) ng/mL 09/01/24 Range/Units 08:40 AST (17-59) U/L Troponin I <0.012 (0.000-0.034) ng/mL Coagulation 08/31/24 Range/Units 20:20 PT 10.7 (10.0-12.5) sec APTT 25.2 (22.0-30.0) sec CBC 08/31/24 Range/Units 20:20 WBC 11.0 H (3.8-10.6) k/uL RBC 5.23 (4.30-5.90) m/uL Hgb 16.7 (13.0-17.5) gm/dL Hct 47.3 (39.0-53.0) % Plt Count 220 (150-450) k/uL Comprehensive Metabolic Panel 08/31/24 Range/Units 20:20 Sodium 140 (137-145) mmol/L Potassium 4.5 (3.5-5.1) mmol/L Chloride 103 (98-107) mmol/L Carbon Dioxide 32 H (22-30) mmol/L BUN 17 (9-20) mg/dL Creatinine 1.55 H (0.66-1.25) mg/dL Glucose 110 H (74-99) mg/dL Calcium 9.8 (8.4-10.2) mg/dL AST 39 (17-59) U/L ALT 31 (4-49) U/L Alkaline Phosphatase 76 (38-126) U/L Total Protein 7.8 (6.3-8.2) g/dL Albumin 4.6 (3.5-5.0) g/dL Current Medications Generic Name Dose Route Start Last Admin Trade Name Freq PRN Reason Stop Dose Admin Aspirin 325 mg 09/02/24 09:00 Aspirin 325 Mg Tab PO DAILY YASH Cholecalciferol 50 mcg 09/01/24 09:00 09/01/24 09:27 Cholecalciferol 25 Mcg (1000 Iu) Tablet PO 50 mcg DAILY YASH Administration Nitroglycerin 0.4 mg 09/01/24 02:30 Nitroglycerin Sl Tabs 0.4 Mg Tab SUBLINGUAL Q5M PRN Chest Pain Pantoprazole Sodium 40 mg 09/01/24 14:15 Pantoprazole 40 Mg Tablet PO AC-BRKFST YASH Intake and Output 08/31/24 09/01/24 09/01/24 22:59 06:59 14:59 Other: Weight 97.522 kg 08/31/24 20:20 08/31/24 20:20
[2024-09-01] MEDS: PANTOPRAZOLE 40 MG TABLET PO SCH (14:18)
[2024-09-01 15:59] VITALS: BP 126/74; PULSE 74
--- NOTE | 2024-09-01 20:59 | P.HPIM ---
History of Present Illness H&P Date: 09/01/24 Chief Complaint: Chest pressure This is a pleasant 54-year-old patient who follows with Dr. Rhys You. Accompanied by his in the ER. Yesterday he felt a bit bloated and he was backing his truck and he felt he could not clearly take deep breaths. He then developed some pain in the back and that came to the front with chest pressure. No dizziness no lightheadedness no perspiration. Around 3 AM patient felt indigestion. But did not feel like his regular heartburn. No cough no fever no chills. No edema. Patient does get intermittent right leg swelling because of prior surgery. Otherwise patient rather active. Patient is recently seen Dr. Webster in the office. Because of family history he has had some workup done including 2D echocardiogram. He is due to go back in and get the results. Review of systems: GEN.: None EYES: None HEENT: None NECK: None RESPIRATORY: [As above CARDIOVASCULAR: As above GASTROINTESTINAL: None GENITOURINARY: None MUSCULOSKELETAL: None LYMPHATICS: None HEMATOLOGICAL: None PSYCHIATRY: None NEUROLOGICAL: None Social history: [employer]. Does drink alcohol on the weekends. No smoking. Physical examination: VITAL SIGNS: 98.0, 97, 20, 169 x 93, 99% room air upon presentation GENERAL: BMI 30.8, reclining bed awake comfortable. EYES: Pupils equal. Conjunctiva mehran l. HEENT: External appearance of nose and ears normal, oral cavity grossly normal. NECK: JVD not raised; masses not palpable. HEART: First and second heart sounds are normal; no edema. LUNGS: Respiratory rate normal; clear to auscultation. ABDOMEN: Soft, nontender, liver spleen not palpable, no masses palpable. PSYCH: Alert and oriented x3; mood and affect mehran l. MUSCULOSKELETAL:No Clubbing/cyanosis;muscles-grossly intact NEUROLOGICAL: Cranial nerves grossly intact; no facial asymmetry, power and sensation grossly intact. LYMPHATICS: No lymph nodes palpable in the axilla and neck INVESTIGATIONS, reviewed in the clinical context: August 31: White count 11 hemoglobin 16.7 platelets 220 sodium 140 potassium 4.5 BUN 17 creatinine 1.55 Troponin I less than 0.012 x 3 D-dimer 0.54. Amylase 67 lipase 95 EKG tracing personally reviewed by me-normal sinus rhythm. Poor R wave progression anterior leads. Chest x-ray film personally reviewed by me-no obvious infiltrate Assessment plan: -Patient presents with some chest tightness and difficulty take a deep breath. Non-smoker. D-dimer 0.54. Given family history Risperdal cardiac cause. Troponins are negative. Telemetry. Cardiology consulted. -Will order a VQ scan given elevated creatinine 1.55. No D-dimer is only 0.54. This was discussed with the patient and -Elevated creatinine 1.55. Patient denies any prior history. Does not take any NSAIDs. This can be further worked up outpatient and follow-up with kidney doctor. Discussed with patient and Cardiology consulted. Past Medical History Past Medical History: Cancer, GERD/Reflux Additional Past Medical History / Comment(s): hx heart murmur, basal skin cancer, heartburn History of Any Multi-Drug Resistant Organisms: None Reported Past Surgical History: Hernia Repair, Orthopedic Surgery Additional Past Surgical History / Comment(s): repair torn rotator cuff right, ORIF right ankle, arthroscopy right knee Past Anesthesia/Blood Transfusion Reactions: No Reported Reaction Past Psychological History: No Psychological Hx Reported Smoking Status: Never smoker Past Alcohol Use History: Occasional Past Drug Use History: None Reported - Past Family History Mother Family Medical History: Cancer Medications and Allergies Home Medications Medication Instructions Recorded Confirmed Type No Known Home Medications 09/01/24 09/01/24 History Allergies Allergy/AdvReac Type Severity Reaction Status Date / Time No Known Allergies Allergy Verified 09/01/24 09:06 Physical Exam Vitals: Vital Signs Temp Pulse Resp BP Pulse Ox 09/01/24 06:00 69 17 119/69 96 09/01/24 02:00 81 17 131/72 95 09/01/24 01:25 76 09/01/24 01:20 71 08/31/24 23:33 87 17 180/88 08/31/24 19:54 98.0 F 97 20 169/93 99 Intake and Output 08/31/24 09/01/24 09/01/24 22:59 06:59 14:59 Other: Weight 97.522 kg Results CBC & Chem 7: 08/31/24 20:20 08/31/24 20:20 Labs: Abnormal Lab Results - Last 24 Hours (Table) 10/18/24 10/18/24 Range/Units 20:20 20:20 WBC 11.0 H (3.8-10.6) k/uL Neutrophils # 7.9 H (1.3-7.7) k/uL Carbon Dioxide 32 H (22-30) mmol/L Creatinine 1.55 H (0.66-1.25) mg/dL Glucose 110 H (74-99) mg/dL
[2024-09-02] MEDS ORDERED: ASPIRIN 325 MG TAB PO SCH (09:00)
== END 2024-09-01 15:57 | disposition home or self-care (01) ==
LOC: EC 19:50 → 6NMEDSUR 09-01 02:30
PROVIDERS: ADMIT Hospitalist; ATTEND Hospitalist
DX: R07.89 Other chest pain (principal); M54.9 Dorsalgia, unspecified; M79.89 Other specified soft tissue disorders; K30 Functional dyspepsia; E66.9 Obesity, unspecified; Z68.30 Body mass index [BMI] 30.0-30.9, adult; K21.9 Gastro-esophageal reflux disease without esophagitis; Z85.828 Personal history of other malignant neoplasm of skin; Z82.49 Family history of ischemic heart disease and other diseases of the circulatory system
CPT/HCPCS: 99285; 36415 ×2; 94640; 93005; 85379; 80053; 82150; 83690; 83735; 84484 ×2; 85025; 85610; 85730; 71046; G0378